=== PATIENT | female | born 1980 | race Caucasian/White ===

== ENCOUNTER 2020-12-29 11:36 | Observation (INO) | payer MEDICAID ==
[~2020-12-29] VITALS: Ht 167.6 cm; Wt 75.9 kg
[2020-12-29] MEDS ORDERED: TERBUTALINE 1 MG/ML, 1ML ONE (11:45)
[2020-12-29] MEDS ORDERED: PLEASE ENTER ALLERGIES MC SCH (12:00)
[2020-12-29] MEDS ORDERED: TERBUTALINE 1 MG/ML, 1ML SQ ONE (12:00)
[2020-12-29] MEDS ORDERED: PLEASE ENTER HEIGHT AND WEIGHT MC SCH (12:00)
[2020-12-29 12:08] LABS: BASOPHILS % (AUTO) 0 % (0-1); EOSINOPHILS % (AUTO) 1 % (1-7); LYMPHOCYTES % (AUTO) 12 % (22-44); MEAN CORPUSCULAR HGB CONC 32.3 g/dL (32.4-35.8); MEAN PLATELET VOLUME 7.5 fL (7.4-10.4); MONOCYTES % (AUTO) 5 % (2-9); NEUTROPHILS % (AUTO) 83 % (42-75); PLATELET COUNT 346 x10^3/uL (130-400); RED BLOOD COUNT 4.22 x10^6/uL (3.82-5.3); RED CELL DISTRIBUTION WIDTH 14.2 % (9.6-15.2)
[2020-12-29] MEDS ORDERED: OMEP-110 PO (12:17)
[2020-12-29] MEDS ORDERED: PREN1TAB10 PO (12:18)
[2020-12-29] MEDS: LACTATED RINGERS 1,000 ML IV SCH (17:44)
[2020-12-29] MEDS ORDERED: TERBUTALINE 1 MG/ML, 1ML IV ONE (18:00)
== END 2020-12-29 18:05 | disposition home or self-care (01) ==
LOC: LDOP 11:36 → LDIP 14:28
PROVIDERS: ADMIT Obstetrics & Gynecology Maternal & Fetal Medicine; ATTEND Obstetrics & Gynecology Maternal & Fetal Medicine
DX: O34.593 Maternal care for other abnormalities of gravid uterus, third trimester (principal); O99.613 Diseases of the digestive system complicating pregnancy, third trimester; K21.9 Gastro-esophageal reflux disease without esophagitis; K58.9 Irritable bowel syndrome, unspecified; Z3A.37 37 weeks gestation of pregnancy; Z79.899 Other long term (current) drug therapy
CPT/HCPCS: 36415; 59025; 59412; 85025; 86850; 86900; 96361; 96374; G0378; J3105; J7120; 96360

== ENCOUNTER 2021-01-15 10:50 | Inpatient (IN) | payer MEDICAID ==
[~2021-01-15] VITALS: Ht 167.6 cm; Wt 78.1 kg
[~2021-01-15 10:50] MED LIST: OMEP-110 PO; PREN1TAB10 PO
[2021-01-22] MEDS ORDERED: FENTANYL PF 100 MCG/2ML IV PRN (05:30)
[2021-01-22] MEDS ORDERED: SODIUM CITRATE/CITRIC ACID 30 ML UDC PO PRN (05:30)
[2021-01-22] MEDS ORDERED: FENTANYL PF 100 MCG/2ML IVPush PRN (05:30)
[2021-01-22] MEDS ORDERED: TERBUTALINE 1 MG/ML, 1ML IVPush PRN (05:30)
[2021-01-22] MEDS: D5%-LACTATED RINGERS 1,000 ML IV SCH ×3 (05:30→21:30)
[2021-01-22] MEDS ORDERED: TERBUTALINE 1 MG/ML, 1ML SQ PRN (05:30)
[2021-01-22] MEDS ORDERED: ONDANSETRON 2MG/ML, 2ML IVPush PRN (05:30)
[2021-01-22] MEDS ORDERED: CALCIUM CARBONATE 500 MG TAB.CHEW PO PRN (05:30)
[2021-01-22] MEDS ORDERED: LIDOCAINE 1%, 20ML ONE (05:36)
[2021-01-22] MEDS ORDERED: OXYTOCIN 30U/ 0.9% NaCL 500ML 500 ML ONE (05:36)
[2021-01-22] MEDS ORDERED: MISOPROSTOL 25 MCG TABLET ONE (05:36)
[2021-01-22] MEDS ORDERED: MISOPROSTOL 200 MCG TABLET ONE (05:36)
[2021-01-22] MEDS ORDERED: NEWBORN KIT ONE (05:36)
[2021-01-22] MEDS: LACTATED RINGERS 1,000 ML IV SCH ×3 (06:00→21:30)
[2021-01-22 06:15] LABS: BASOPHILS % (AUTO) 1 % (0-1); EOSINOPHILS % (AUTO) 1 % (1-7); LYMPHOCYTES % (AUTO) 15 % (22-44); MEAN CORPUSCULAR HEMOGLOBIN 27.1 pg (27.0-34.8); MEAN CORPUSCULAR HGB CONC 33.1 g/dL (32.4-35.8); MEAN PLATELET VOLUME 7.9 fL (7.4-10.4); MONOCYTES % (AUTO) 7 % (2-9); NEUTROPHILS % (AUTO) 77 % (42-75); PLATELET COUNT 322 x10^3/uL (130-400); RED BLOOD COUNT 3.92 x10^6/uL (3.82-5.3); RED CELL DISTRIBUTION WIDTH 15.3 % (9.6-15.2)
[2021-01-22] MEDS ORDERED: PENICILLIN GK 2,500,000 UNITS in DEXTROSE 5% 100 ML IVPB SCH (06:30)
[2021-01-22] MEDS ORDERED: PENICILLIN GK 5,000,000 UNITS in DEXTROSE 5% 100 ML IVPB ONE (06:30)
[2021-01-22] MEDS: MISOPROSTOL 25 MCG TABLET VG PRN ×2 (08:30→17:30)
[2021-01-23] MEDS ORDERED: METOCLOPRAMIDE 5 MG/ML, 2ML ONE (01:59)
[2021-01-23] MEDS ORDERED: SODIUM CITRATE/CITRIC ACID 15 ML UDC ONE (01:59)
[2021-01-23] MEDS ORDERED: OXYcodone/APAP 5/325MG TABLET PO PRN (02:30)
[2021-01-23] MEDS ORDERED: CARBOPROST TROMETHAMINE 250 MCG/ML, 1ML IM PRN (02:30)
[2021-01-23] MEDS ORDERED: SODIUM CITRATE/CITRIC ACID 30 ML UDC PO ONE (02:30)
[2021-01-23] MEDS ORDERED: DIPH,PERTUSS(ACELL),TET VAC/PF NC IM-VACC PRN (02:30)
[2021-01-23] MEDS ORDERED: METHYLERGONOVINE 0.2 MG/ML IM PRN (02:30)
[2021-01-23] MEDS ORDERED: ACETAMINOPHEN 325 MG TABLET PO PRN ×2 (02:30→04:00)
[2021-01-23] MEDS ORDERED: MISOPROSTOL 200 MCG TABLET PR PRN (02:30)
[2021-01-23] MEDS ORDERED: AZITHROMYCIN 500 MG in SODIUM CHLORIDE 0.9% 250 ML IV ONE (02:30)
[2021-01-23] MEDS ORDERED: METOCLOPRAMIDE 5 MG/ML, 2ML IV ONE (02:30)
[2021-01-23] MEDS ORDERED: ONDANSETRON 2MG/ML, 2ML IV PRN (02:30)
[2021-01-23] MEDS ORDERED: LACTATED RINGERS 1,000 ML IVBOLUS ONE (02:30)
[2021-01-23] MEDS ORDERED: ONDANSETRON 2MG/ML, 2ML IVPush PRN (04:00)
[2021-01-23] MEDS: OXYTOCIN 30U/ 0.9% NaCL 500ML 500 ML IV SCH ×3 (04:00→22:30)
[2021-01-23] MEDS ORDERED: DIPHENHYDRAMINE 50 MG/ML, 1ML IVPush PRN (04:00)
[2021-01-23] MEDS ORDERED: EPHEDRINE 50 MG/ML, 1ML IVPush PRN (04:00)
[2021-01-23] MEDS ORDERED: morphine SULFATE 10 MG/ML, 1ML IVPush PRN (04:00)
[2021-01-23] MEDS ORDERED: OXYcodone 5 MG/5 ML ORAL.SOL UDC PO PRN (04:00)
[2021-01-23] MEDS ORDERED: FENTANYL PF 100 MCG/2ML IV PRN (04:00)
[2021-01-23] MEDS: OXYcodone/APAP 5/325MG TABLET PO PRN (05:30)
[2021-01-23 08:10] VITALS: BP 106/67
[2021-01-23] MEDS: KETOROLAC 30 MG/1 ML IVPush SCH ×3 (09:22→21:00)
[2021-01-23] MEDS: OXYcodone/APAP 10/325MG TABLET PO PRN ×5 (09:23→23:28)
[2021-01-23] MEDS: DOCUSATE 100 MG CAPSULE PO PRN ×2 (09:23→20:03)
[2021-01-23] MEDS: PRENATAL VIT/IRON/FA 1 EACH TABLET PO SCH (09:23)
[2021-01-23] MEDS: SIMETHICONE 80 MG CHEW TAB PO PRN ×2 (09:23→20:03)
[2021-01-23 11:32] LABS: BASOPHILS % (AUTO) 0 % (0-1); EOSINOPHILS % (AUTO) 0 % (1-7); LYMPHOCYTES % (AUTO) 8 % (22-44); MEAN CORPUSCULAR HEMOGLOBIN 26.8 pg (27.0-34.8); MEAN CORPUSCULAR HGB CONC 33.2 g/dL (32.4-35.8); MEAN PLATELET VOLUME 7.7 fL (7.4-10.4); MONOCYTES % (AUTO) 5 % (2-9); NEUTROPHILS % (AUTO) 86 % (42-75); PLATELET COUNT 266 x10^3/uL (130-400); RED BLOOD COUNT 3.41 x10^6/uL (3.82-5.3); RED CELL DISTRIBUTION WIDTH 15.3 % (9.6-15.2)
[2021-01-23 12:15] VITALS: BP 97/59
[2021-01-23 17:09] VITALS: BP 102/67
[2021-01-23 19:30] VITALS: BP 112/70
[2021-01-24] VITALS: BP 96/61
[2021-01-24] MEDS: KETOROLAC 30 MG/1 ML IVPush SCH ×2 (03:18→09:30)
[2021-01-24] MEDS: SIMETHICONE 80 MG CHEW TAB PO PRN ×3 (03:18→15:49)
[2021-01-24] MEDS: OXYcodone/APAP 10/325MG TABLET PO PRN ×4 (03:18→16:43)
[2021-01-24] MEDS: PRENATAL VIT/IRON/FA 1 EACH TABLET PO SCH (07:32)
[2021-01-24] MEDS: DOCUSATE 100 MG CAPSULE PO PRN ×2 (07:32→20:50)
[2021-01-24 08:20] VITALS: BP 96/63
[2021-01-24] MEDS: OXYTOCIN 30U/ 0.9% NaCL 500ML 500 ML IV SCH ×2 (08:30→18:30)
[2021-01-24] MEDS: IBUPROFEN 600 MG TABLET PO PRN ×3 (09:45→20:50)
[2021-01-24 20:00] VITALS: BP 109/71
[2021-01-24] MEDS: OXYcodone/APAP 5/325MG TABLET PO PRN (20:51)
[2021-01-25] MEDS: OXYTOCIN 30U/ 0.9% NaCL 500ML 500 ML IV SCH (04:30)
[2021-01-25] MEDS: IBUPROFEN 600 MG TABLET PO PRN ×2 (04:43→10:43)
[2021-01-25] MEDS: SIMETHICONE 80 MG CHEW TAB PO PRN ×2 (04:43→10:43)
[2021-01-25 07:45] VITALS: BP 105/69
[2021-01-25] MEDS ORDERED: DOCU-131 PO (08:48)
[2021-01-25] MEDS ORDERED: OXYC1TAB14 PO (08:48)
[2021-01-25] MEDS ORDERED: IBUP-1223 PO (08:48)
[2021-01-25] MEDS: PRENATAL VIT/IRON/FA 1 EACH TABLET PO SCH (10:42)
[2021-01-25] MEDS: DOCUSATE 100 MG CAPSULE PO PRN (10:42)
[2021-01-25] MEDS: OXYcodone/APAP 5/325MG TABLET PO PRN (10:44)
== END 2021-01-25 17:30 | disposition home or self-care (01) | DRG 788 ==
LOC: LDIP 01-22 05:28 → 2NW 01-23 05:28
PROVIDERS: ADMIT Obstetrics & Gynecology Maternal & Fetal Medicine; ATTEND Obstetrics & Gynecology Maternal & Fetal Medicine
PROC: 10D00Z1 Extraction of Products of Conception, Low, Open Approach (ICD-10-PCS; principal; 2021-01-23)
DX: O48.0 Post-term pregnancy (principal); Z37.0 Single live birth; Z3A.41 41 weeks gestation of pregnancy; Z20.822 Contact with and (suspected) exposure to COVID-19; O99.824 Streptococcus B carrier state complicating childbirth; D50.9 Iron deficiency anemia, unspecified; O99.02 Anemia complicating childbirth; O76 Abnormality in fetal heart rate and rhythm complicating labor and delivery; O36.63X0 Maternal care for excessive fetal growth, third trimester, not applicable or unspecified; O62.1 Secondary uterine inertia; O77.0 Labor and delivery complicated by meconium in amniotic fluid
CPT/HCPCS: 36415; 85025; 86592; 86850; 86900; 87635; G0378; J1885; J2540; J2590; J7120